=== PATIENT | female | born 1940 | race Caucasian/White ===

== ENCOUNTER 2017-02-15 05:23 | Inpatient (IN) | payer OTHER, MEDICARE ==
[~2017-02-15] VITALS: Ht 154.9 cm; Wt 82.5 kg
[~2017-02-15 05:23] MED LIST: ALEVE220 MG PO; ASPIRIN81 M2 PO; BACTRIM,SEPT1 TABLET PO; BIOTIN 5000MCG PO; CALCIUM 600 +1 EAC4 PO; CALCIUM PO; IRON325 M1 PO; MILK OF MAGN PO; MOTRIN600 MG PO; PROLIA60 MG/1 ML SC; SENNA-TIME S T1 EACH PO; SIMVASTATIN20 MG PO; SYNTHROID125 MCG PO; TOPROL XL50 MG PO; TRIAMTERENE-HC1 EACH PO; TYLENOL EXTRA500 MG PO; XALATAN2.5 ML BOTH EYES; ZOCOR10 MG PO
[2017-02-15 06:09] VITALS: BP 168/78
[2017-02-15 11:02] VITALS: BP 153/72
[2017-02-15 15:15] VITALS: BP 153/71
[2017-02-15 19:28] VITALS: BP 129/65
[2017-02-15 23:35] VITALS: BP 175/71
[2017-02-16 04:18] VITALS: BP 140/64
[2017-02-16 05:40] LABS: HEMATOCRIT 31.9 % (36.0-46.0); MCV 91.7 FL (83-99)
[2017-02-16 06:33] LABS: ANION GAP 9 MEQ/L (2-14); CHLORIDE 102 MEQ/L (99-109); GFR ESTIMATE (CALCULATED) > 59 mL/min/; GLUCOSE 130 mg/dL (70-99); POTASSIUM 3.7 MEQ/L (3.7-5.4); SAMPLE HEMOLYSIS CHECK 0; SAMPLE ICTERIC CHECK 0; SAMPLE LIPEMIA CHECK 0; SODIUM 137 MEQ/L (136-147); UREA NITROGEN (BUN) 12 mg/dL (9-23)
[2017-02-16 07:43] VITALS: BP 148/68
[2017-02-16] MEDS ORDERED: XARELTO10 MG PO (10:13)
[2017-02-16 11:54] VITALS: BP 156/72
[2017-02-16 15:46] VITALS: BP 177/74
[2017-02-16 23:51] VITALS: BP 168/77
[2017-02-17 05:58] LABS: HEMATOCRIT 32.5 % (36.0-46.0)
[2017-02-17 09:37] VITALS: BP 162/73
[2017-02-17] MEDS ORDERED: TYLENOL REGULA325 MG PO (13:11)
== END 2017-02-17 14:50 | disposition home or self-care (01) | DRG 470 ==
LOC: 2SOUTH 05:23 → 3EAST 05:23 → 2SOUTH 10:51 → 3EAST 11:06 → 2SOUTH 11:49 → 3EAST 02-17 14:50
PROVIDERS: Orthopaedic Surgery; Physician Assistant
PROC: 0SRC0JZ Replacement of Right Knee Joint with Synthetic Substitute, Open Approach (ICD-10-PCS; principal; 2017-02-15)
DX: M17.11 Unilateral primary osteoarthritis, right knee (principal); I10 Essential (primary) hypertension; R73.09 Other abnormal glucose; Z79.01 Long term (current) use of anticoagulants
CPT/HCPCS: 80048; 85014; 85018; C1713; J0131; J0690; J1170; J1885; J2250; J2405; J7050; J7120; L1820; S0020